=== PATIENT | male | born 2000 | race Caucasian/White ===

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

== ENCOUNTER 2018-06-25 23:58 | Emergency (ER) | payer OTHER ==
[2018-06-26] MEDS ORDERED: Haloperidol INJ IV/IM* 5 MG/ML AMP IM ONE (00:15)
[2018-06-26] MEDS ORDERED: LORazepam INJ* 2 MG/ML 1 ML VIAL IM ONE (00:15)
[2018-06-26] MEDS ORDERED: NS 0.9% 1000 ML** 2,000 ML IV ONE (00:22)
[2018-06-26] MEDS ORDERED: Acetaminophen TAB* 325 MG PO ONE (00:24)
--- NOTE | 2018-06-26 00:24 | ED ---
Syncope/Near Syncope - HPI Summary HPI Summary: Patient is a 18 y/o M presenting to ED via EMS with complaints of slight headache, abdominal pain, constipation, N/V, fever, chills and near syncope. He states that he woke up this morning with GRIGSBY, abdominal pain, and constipation. Sx have persisted throughout the day and he also notes that he felt feverish and experienced chills. Patient claims to have not had a bowel movement in the past three days but later states that he had a bowel movement that consisted of only "water". Patient started to feel "worse" later in the day and developed spotting in eyes bilaterally. He had 3-4 episodes of vomiting and states he had to lie on the ground as he felt near syncopal. He denies sore throat. No PMHx, no regular medications, no drug usage, patient states that he did not take any Tylenol/Motrin [employer]. On triage, pain is denied. Nothing is noted to aggravate/ alleviate Sx. Home medications and allergies are reviewed. Pulse 127, bp 99/66, o2 97. - History Of Current Complaint Chief Complaint: EDDizziness Time Seen by Provider: 06/26/18 00:14 Hx Obtained From: Patient Onset/Duration: Lasting Hours, Still Present Timing: Hours Aggravating Factor(s): Nothing Alleviating Factor(s): Nothing Associated Signs And Symptoms: Headache, Vomiting, Other - slight headache, abdominal pain, constipation, N/V, fever, chills and near syncope, spotting at eyes bilaterally - Allergies/Home Medications Allergies/Adverse Reactions: Allergies Allergy/AdvReac Type Severity Reaction Status Date / Time No Known Allergies Allergy Verified 06/26/18 00:14 PMH/Surg Hx/FS Hx/Imm Hx Endocrine/Hematology History: Denies: Hx Anticoagulant Therapy Cardiovascular History: Denies: Hx Myocardial Infarction Sensory History: Denies: Hx Legally Blind, Hx Deafness Opthamlomology History: Denies: Hx Legally Blind EENT History: Denies: Hx Deafness Infectious Disease History: No Infectious Disease History: Denies: Traveled Outside the [place] in Last 30 Days - Family History Known Family History: Positive: Other - migraines - Social History Substance Use Type: Reports: None Smoking Status (MU): Never Smoked Tobacco Review of Systems Positive: Fever, Chills Positive: Blurred Vision - spotting of eyes Negative: Sore Throat Gastrointestinal: Other - POSITIVE - CONSTIPATION Positive: Abdominal Pain, Vomiting, Nausea Positive: Headache, Syncope - NEAR All Other Systems Reviewed And Are Negative: Yes Physical Exam - Summary Physical Exam Summary: VITAL SIGNS: Reviewed. GENERAL: Patient is a well-developed and nourished male who is lying comfortable in the stretcher. Patient is not in any acute respiratory distress. Patient is anxious appearing HEAD AND FACE: No signs of trauma. No ecchymosis, hematomas or skull depressions. No sinus tenderness. EYES: PERRLA, EOMI x 2, No injected conjunctiva, no nystagmus. EARS: Hearing grossly intact. Ear canals and tympanic membranes are within normal limits. MOUTH: Oropharynx within normal limits. NECK: Supple, trachea is midline, no adenopathy, no JVD, no carotid bruit, no c- spine tenderness, neck with full ROM. CHEST: Symmetric, no tenderness at palpation LUNGS: Clear to auscultation bilaterally. No wheezing or crackles. CVS: Tachycardic, S1 and S2 present, no murmurs or gallops appreciated. ABDOMEN: Soft, non-tender. No signs of distention. No rebound no guarding, and no masses palpated. Bowel sounds are normal. EXTREMITIES: FROM in all major joints, no edema, no cyanosis or clubbing. NEURO: Alert and oriented x 3. No acute neurological deficits. Speech is normal and follows commands. SKIN: Dry and warm Triage Information Reviewed: Yes Vital Signs On Initial Exam: Initial Vitals Temp Pulse Resp BP Pulse Ox 97.7 F 117 20 107/49 96 06/26/18 00:10 06/26/18 00:10 06/26/18 00:10 06/26/18 00:10 06/26/18 00:10 Vital Signs Reviewed: Yes Diagnostics - Vital Signs Vital Signs Temp Pulse Resp BP Pulse Ox 06/26/18 00:10 97.7 F 117 20 107/49 96 - Laboratory Result Diagrams: 06/26/18 00:35 06/26/18 00:35 Lab Statement: Any lab studies that have been ordered have been reviewed, and results considered in the medical decision making process. - Radiology abdominal x-ray Radiology Interpretation Completed By: ED Physician - Dr. Morrissey Summary of Radiographic Findings: Increased chronic stool consistent with constipation, pending offical report. Re-Evaluation - Re-Evaluation First Eval Re-Evaluation Time: 01:25 Comment: Results of labs and tests were discussed with patient, he will be discharged to home with PCP follow up and ibuprofen prescription. Patient is agreeable with this. Course/Dx Course Of Treatment: Patient is a 18 y/o M presenting to ED via EMS with complaints of slight headache, abdominal pain, constipation, N/V, fever, chills and near syncope. He states that he woke up this morning with GRIGSBY, abdominal pain , and constipation. Sx have persisted throughout the day and he also notes that he felt feverish and experienced chills. Patient claims to have not had a bowel movement in the past three days but later states that he had a bowel movement that consisted of only "water". Patient started to feel "worse" later in the day and developed spotting in eyes bilaterally. He had 3-4 episodes of vomiting and states he had to lie on the ground as he felt near syncopal. He denies sore throat. No PMHx, no regular medications, no drug usage, patient states that he did not take any Tylenol/Motrin [employer]. On physical exam, patient is anxious appearing, tachycardic. Abd x-ray showed Increased chronic stool consistent with constipation, pending offical report. Labs showed absolute neuts 9.2, absolute lymphs 0.6, absolute monos 0.9, chloride 100, glucose 109, magnesium 1.6, total bilirubin 1.4, TSH 0.47. Monoscreen, Influenza A, B were negative. During Ed course, patient was given Tylenol 975 mg PO, fluids. Results of labs and tests were discussed with patient, he will be discharged to home with PCP follow up and ibuprofen prescription. Patient is agreeable with this. He was also given dulcolax 10 mg [place] and Citrate of Magnesia 300 ml PO before discharge. - Diagnoses Provider Diagnoses: Viral syndrome, Constipation Discharge - Sign-Out/Discharge Documenting (check all that apply): Patient Departure - discharge Patient Received Moderate/Deep Sedation with Procedure: No - NO PROCEDURES DONE - Discharge Plan Condition: Stable Disposition: HOME Prescriptions: Ibuprofen TAB* [Motrin TAB* 800 MG] 800 mg PO Q6H PRN #30 tab PRN Reason: Fever/Pain Patient Education Materials: Constipation (ED), Viral Syndrome (ED) Forms: *School Release Referrals: [facility] - Boris LEAHY [Z.BUSINESS, APPLICATION, OTHER] - 2 Days Additional Instructions: RETURN TO THE EMERGENCY DEPARTMENT FOR CHANGING OR WORSENING SYMPTOMS. FOLLOW UP WITH PRIMARY CARE PHYSICIAN IN 1-2 DAYS. - Attestation Statements Document Initiated by Scribe: Yes Documenting Scribe: JESICA GATICA Provider For Whom Scribe is Documenting (Include Credential): JEFRY MORRISSEY MD Scribe Attestation: I, JESICA GATICA, scribed for JEFRY MORRISSEY MD on 06/26/18 at 0146. Status of Scribe Document: Ready
[2018-06-26 00:48] LABS: ABS Basophils 0 10^3/ul (0-0.2); ABS Eosinophils 0 10^3/ul (0-0.6); ABS Lymphocytes 0.6 10^3/ul (1.0-4.8); ABS Monocytes 0.9 10^3/ul (0-0.8); ABS Neutrophils 9.2 10^3/ul (1.5-7.7); ABS Nucleated RBC 0 10^3/ul; Eosinophil % 0.4 %; Hematocrit 46 % (42-52); Lymphocyte % 5.3 %; Mean Corpuscular HGB Conc 35 g/dl (31-36); Mean Corpuscular Hemoglobin 31 pg (27-31); Mean Corpuscular Volume 90 fL (80-94); Mean Platelet Volume 8.9 fL (7.4-10.4); Nucleated Red Blood Cells % 0; Platelet Count 174 10^3/ul (150-450); Red Blood Count 5.13 10^6/ul (4.00-5.40); Red Cell Distribution Width 13 % (10.5-15); White Blood Count 10.8 10^3/ul (3.5-10.8)
[2018-06-26 01:04] LABS: Albumin 4.5 g/dL (3.2-5.2); Albumin/Globulin Ratio 1.8 (1-3); BUN/Creatinine Ratio 14.3 (8-20); Calcium 9.1 mg/dL (8.6-10.3); Globulin 2.5 g/dL (2-4); Magnesium 1.6 mg/dL (1.9-2.7); Potassium 3.6 mmol/L (3.5-5.0); Total Bilirubin 1.4 mg/dL (0.2-1.0)
[2018-06-26 01:11] LABS: Influenza A Molecular NEGATIVE (Negative); Influenza B Molecular NEGATIVE (Negative)
[2018-06-26] MEDS ORDERED: Magnesium CITRATE* 300 ML BTL PO ONE (01:30)
[2018-06-26] MEDS ORDERED: Bisacodyl SUPP* 10 MG SUPP PR ONE (01:30)
[2018-06-26 01:33] LABS: TSH (Thyroid Stimulating Horm) 0.47 mcIU/mL (0.34-5.60)
[2018-06-26 02:21] VITALS: BP 104/62
== END 2018-06-26 02:10 | disposition home or self-care (01) ==
LOC: ED 23:58
DX: B34.9 Viral infection, unspecified (principal); K59.00 Constipation, unspecified; R51 Headache; R10.9 Unspecified abdominal pain; R55 Syncope and collapse; R11.2 Nausea with vomiting, unspecified; R50.9 Fever, unspecified; H53.8 Other visual disturbances
CPT/HCPCS: 36415; 74019; 80053; 83735; 84443; 85025; 86308; 96360; 96361; 96372; 99283; A9270-GY